=== PATIENT | female | born 1985 | race Caucasian/White ===

== ENCOUNTER 2016-06-07 04:52 | Inpatient (IN) | payer BC, OTHER ==
[~2016-06-07 04:52] MED LIST: CALC60TA2 PO; FERR240T9 PO; PRENAT PO
[2016-06-07] MEDS ORDERED: OXYTOCIN 10 UNIT INJ ONE (05:01)
--- NOTE | 2016-06-07 05:34 | HP ---
Date/Time of Note Date/Time of Note DATE: 06/07/16 TIME: 05:31 OB - History Hx of Present Free Text/Dictation Pt is a 30yo BIBA 2/2 painful UCs with onset 1hr ago. Pt reports hx of fast labors. Reports normal FM, denies LOF or VB. Per pt, receiving antental care at [facility] although late to care at 5mth of 2/2 late realization of . Denies complications during course. Denies hx of drug or EtOH use. Estimated Due Date: Jun 16, 2016 (per pt report) : 4 Para: 3 Care: Limited Care Past Family/Social History * chart not available OB Admission Exam Vital Signs Vital Signs 134/77 79 Physical Exam HEENT: WNL Heart: Rhythm Normal Lungs: Clear Abdomen: WNL Extremities: Normal Cervical Dilatation: 10cm Effacement: 100% Station: +2 Membranes: Intact Heart Rate: 130's (limited FHT) Accelerations: Accelerations Present Decelerations: Late Decelarations Varibility: Moderate Contractions on Admission: < 5 Minutes Apart Intensity: Firm OB Assessment/Plan Reason for admission: active labor Plan: Expectant Management Other plan: RT for delivery 2/2 absence of records and limited FHT Will begin pushing VIC DUNAWAY MD Jun 07, 2016 05:34
--- NOTE | 2016-06-07 05:37 | LDN ---
Date/Time of Note Date/Time of Note DATE: 06/07/16 TIME: 05:34 Delivery Summary Uncomplicated . JOVI atony managed with uterotonics. Uterine sweep with Ancef 2g IV x1 given thereafter. RT at delivery 2/2 absence of records and limited FHT prior to delivery Placenta Delivered: Spontaneously Meconium: none Perineum intact?: Yes Anesthesia type: None Estimated blood loss: 400 (Oxytocin 10mg IM x1 followed by Misoprostol 1000mcg PA 2/2 JOVI atony) Sponge & Needle done & correct: Yes All needle counts correct: Yes Any foreign bodies felt in the: No Problems: Infant Delivery Information Sex Sex: male Apgars 1 Minute: 8 5 Minute: 8 Suctioning Nose & mouth suctioned at erica: Yes Delee suction performed: Yes Umbilical Cord Umbilical cord with: 3 Vessels Cord presentations: no nuchal cord Cord Blood was obtained: Yes Mother & Baby Disposition Disposition Mom & Baby to Maternity; Good: Yes Baby to NICU: No VIC DUNAWAY MD Jun 07, 2016 05:37
[2016-06-07] MEDS: LACTATED RINGER'S 1,000 ML IV* SCH ×2 (05:50→11:22)
[2016-06-07] MEDS ORDERED: ACETAMINOPHEN 325 MG TAB PO PRN (06:00)
[2016-06-07] MEDS ORDERED: METHYLERGONOVINE 0.2 MG INJ IM PRN ×2 (06:00→08:00)
[2016-06-07] MEDS ORDERED: CEFAZOLIN 2 GM/50 ML (PMX) 50 ML IVPB ONE (06:00)
[2016-06-07] MEDS ORDERED: LANOLIN 7 GM TUBE TOP PRN (06:00)
[2016-06-07] MEDS ORDERED: CARBOPROST 250 MCG INJ IM PRN ×2 (06:00→08:00)
[2016-06-07] MEDS ORDERED: SENNA/DOCUSATE NA (8.6MG/50MG) TAB PO PRN (06:00)
[2016-06-07] MEDS ORDERED: MISOPROSTOL 200 MCG TAB PR PRN ×2 (06:00→08:00)
[2016-06-07] MEDS ORDERED: ONDANSETRON 4 MG INJ IV PRN (06:00)
[2016-06-07] MEDS ORDERED: BENZOCAINE 20% 56 ML SPRAY TOP PRN (06:00)
[2016-06-07] MEDS ORDERED: DIPHENHYDRAMINE 50 MG INJ IV PRN (06:00)
[2016-06-07] MEDS ORDERED: DIBUCAINE 1% 30 GM OINT PR PRN (06:00)
[2016-06-07] MEDS ORDERED: OXYTOCIN 30 UNITS/LR 500 ML IV PRN ×2 (06:00→08:00)
[2016-06-07] MEDS: IBUPROFEN 600 MG TAB PO SCH ×4 (06:43→23:51)
[2016-06-07 06:54] LABS: ADD SCAN DIFF NO
[2016-06-07 07:09] LABS: BASOPHILS % 0.2 % (0.0-2.0); EOSINOPHILS # 0.1 10^3/ul (0.0-0.5); EOSINOPHILS % 0.4 % (0.0-7.0); HEMATOCRIT 35.2 % (37.0-47.0); HEMOGLOBIN 11.5 g/dl (12.0-16.0); LYMPHOCYTES # 1.7 10^3/ul (0.8-2.9); LYMPHOCYTES % 13.2 % (15.0-51.0); MEAN CORPUSCULAR HEMOGLOBIN 28.6 pg (29.0-33.0); MEAN CORPUSCULAR HGB CONC 32.7 g/dl (32.0-37.0); MEAN CORPUSCULAR VOLUME 87.6 fl (82.0-101.0); MEAN PLATELET VOLUME 10.4 fl (7.4-10.4); MONOCYTE # 0.4 10^3/ul (0.3-0.9); MONOCYTES % 3.3 % (0.0-11.0); NEUTROPHIL # 10.7 10^3/ul (1.6-7.5); NEUTROPHILS % 82.3 % (39.0-77.0); PLATELET COUNT 285 10^3/UL (140-415); RED BLOOD COUNT 4.02 10^6/ul (4.20-5.40); RED CELL DISTRIBUTION WIDTH 13.2 % (11.5-14.5)
[2016-06-07 07:30] LABS: INR 0.86; PROTIME 11.7 Sec (12.2-14.2); PT RATIO 0.9
[2016-06-07 07:31] LABS: PARTIAL THROMBOPLASTIN TIME 28.5 Sec (25.0-35.0)
[2016-06-07] MEDS ORDERED: ACETAMINOPHEN/CODEINE #3 TAB PO PRN (08:00)
[2016-06-07] MEDS ORDERED: OXYCODONE/ACETAMINOPHEN (5/325) TAB PO PRN (08:00)
[2016-06-07] MEDS ORDERED: IBUPROFEN 600 MG TAB PO PRN (08:00)
[2016-06-07] MEDS ORDERED: OXYCODONE/ASPIRIN (4.88/325) TAB PO PRN (08:00)
[2016-06-07] MEDS ORDERED: OXYTOCIN 30 UNITS/LR 500 ML IV SCH ×2 (08:00)
[2016-06-07 08:16] LABS: BARBITURATES Negative (NEGATIVE); BENZODIAZEPINES Negative (NEGATIVE); CANNABINOIDS Positive (NEGATIVE); COCAINE Negative (NEGATIVE); OPIATES Negative (NEGATIVE)
[2016-06-07 08:35] VITALS: BP 130/80; PULSE 86; RESP 20
[2016-06-07 12:00] VITALS: BP 118/71; PULSE 74; RESP 18
[2016-06-07 16:00] VITALS: BP 130/88; PULSE 87; RESP 19
[2016-06-07 20:00] VITALS: BP 145/85; PULSE 115; RESP 18
[2016-06-08] VITALS: BP 132/78; PULSE 86; RESP 18
[2016-06-08 03:52] VITALS: BP 117/65; PULSE 73; RESP 18
[2016-06-08] MEDS: IBUPROFEN 600 MG TAB PO SCH ×4 (05:38→23:22)
[2016-06-08 07:50] VITALS: BP 118/69; PULSE 75; RESP 17
[2016-06-08 07:54] LABS: ADD SCAN DIFF NO
[2016-06-08 07:59] LABS: BASOPHILS % 0.3 % (0.0-2.0); EOSINOPHILS # 0.2 10^3/ul (0.0-0.5); EOSINOPHILS % 2.1 % (0.0-7.0); HEMATOCRIT 31.2 % (37.0-47.0); HEMOGLOBIN 10.2 g/dl (12.0-16.0); LYMPHOCYTES # 2.9 10^3/ul (0.8-2.9); LYMPHOCYTES % 32.9 % (15.0-51.0); MEAN CORPUSCULAR HEMOGLOBIN 28.8 pg (29.0-33.0); MEAN CORPUSCULAR HGB CONC 32.7 g/dl (32.0-37.0); MEAN CORPUSCULAR VOLUME 88.1 fl (82.0-101.0); MEAN PLATELET VOLUME 10.2 fl (7.4-10.4); MONOCYTE # 0.5 10^3/ul (0.3-0.9); MONOCYTES % 5.3 % (0.0-11.0); NEUTROPHIL # 5.2 10^3/ul (1.6-7.5); NEUTROPHILS % 58.9 % (39.0-77.0); PLATELET COUNT 280 10^3/UL (140-415); RED BLOOD COUNT 3.54 10^6/ul (4.20-5.40); RED CELL DISTRIBUTION WIDTH 13.1 % (11.5-14.5); WHITE BLOOD COUNT 8.8 10^3/ul (4.8-10.8)
[2016-06-08] MEDS ORDERED: INFLUENZA VIRUS VACCINE 0.5 ML (DISPENSING) IM* ONE (11:00)
[2016-06-08 15:40] VITALS: BP 117/70; PULSE 85; RESP 19
[2016-06-08 19:50] VITALS: BP 114/60; PULSE 87; RESP 19
[2016-06-09 04:00] VITALS: BP 115/61; PULSE 82; RESP 19
[2016-06-09] MEDS: IBUPROFEN 600 MG TAB PO SCH ×2 (06:18→11:59)
[2016-06-09 08:00] VITALS: BP 109/59; PULSE 84; RESP 18
[2016-06-09] MEDS ORDERED: DIPHTH/TET/ACEL PERTUSS (ADULT) 0.5 ML VIAL IM* ONE (09:00)
--- NOTE | 2016-06-09 09:19 | DS ---
Date/Time of Note Date/Time of Note 28 DATE: 06/09/16 TIME: 09:11 Post day 2 Patient is doing well, Ambulatory She is afebrile Abdomen is soft , Fundus is firm Moderate amount of lochia Breasts are soft, Nipples are intact No calf tenderness Not breast feeding the new born. Current Medications Medications (Trade) Dose Ordered Sig/Eder Route PRN Reason Start Time Stop Time Status Last Admin Dose Admin Oxytocin 10 units 10 units STK-MED ONCE .ROUTE 06/07/16 05:01 06/07/16 05:02 DC Cefazolin Sodium/ Dextrose 50 ml @ 100 mls/hr ONCE ONCE IVPB 06/07/16 06:00 06/07/16 06:00 DC Lactated Ringer's (Lr) 1,000 ml @ 125 mls/hr Q8H IV* 06/07/16 05:38 06/07/16 18:38 DC 06/07/16 11:22 Ibuprofen (Motrin) 600 mg Q6 PO 06/07/16 06:00 06/09/16 06:18 Ondansetron HCl (Zofran Inj) 4 mg Q6H PRN IV NAUSEA AND/OR VOMITING 06/07/16 06:00 Diphenhydramine HCl (Benadryl) 25 mg Q6H PRN IV PRURITUS 06/07/16 06:00 Senna/Docusate Sodium (Senokot-S) 1 tab BID PRN PO CONSTIPATION 06/07/16 06:00 06/08/16 20:25 Benzocaine (Dermoplast [place]) 1 spray BEDSIDE MEDICATION PRN TOP HEMORRHOID/EPISIOTMY PAIN 06/07/16 06:00 06/07/16 09:22 Dibucaine (Nupercainal) 1 applic BEDSIDE MEDICATION PRN SD HEMORRHOID/EPISIOTMY PAIN 06/07/16 06:00 Lanolin (Cyt-R-Pcxije) 1 applic BEDSIDE MEDICATION PRN TOP BEDSIDE FOR STEFANY TO NIPPLES 06/07/16 06:00 Diphtheria/ Tetanus/Acell Pertussis (Adacel) 0.5 ml ONCE ONCE IM* 06/09/16 09:00 06/09/16 09:01 DC Acetaminophen 650 mg 650 mg Q4H PRN PO ELEVATED TEMPERATURE 06/07/16 06:00 Oxytocin/Lactated Ringer's 500 ml @ 0 mls/hr ONCE PRN IV For Hemorrhage Management 06/07/16 06:00 06/07/16 06:45 Methylergonovine Maleate (Methergine) 0.2 mg ONCE PRN IM VAGINAL BLEEDING 06/07/16 06:00 Carboprost Tromethamine (Hemabate) 250 mcg ONCE PRN IM VAGINAL BLEEDING 06/07/16 06:00 Cancel Misoprostol 1000 mcg 1,000 mcg ONCE PRN SD VAGINAL BLEEDING 06/07/16 06:00 06/07/16 06:47 Oxytocin/Lactated Ringer's 500 ml @ 125 mls/hr ONCE -MAY REPEAT X1 IV 06/07/16 08:00 06/07/16 18:39 DC 06/07/16 07:52 Oxytocin/Lactated Ringer's 500 ml @ 125 mls/hr ONCE IV 06/07/16 08:00 Ibuprofen (Motrin) 600 mg ONCE PRN PO Mild Pain (Pain Score 1-3) 06/07/16 08:00 Acetaminophen/ Codeine Phosphate (Tylenol No.3) 2 tab ONCE PRN PO Moderate to Severe Pain (4-10) 06/07/16 08:00 Oxycodone/Aspirin (Percodan) 2 tab ONCE PRN PO Moderate to Severe Pain (4-10) 06/07/16 08:00 Oxycodone/ Acetaminophen 2 tab 2 tab ONCE PRN PO Moderate to Severe Pain (4-10) 06/07/16 08:00 06/07/16 09:22 Oxytocin/Lactated Ringer's 500 ml @ 0 mls/hr ONCE PRN IV For Hemorrhage Management 06/07/16 08:00 Methylergonovine Maleate (Methergine) 0.2 mg ONCE PRN IM VAGINAL BLEEDING 06/07/16 08:00 Carboprost Tromethamine (Hemabate) 250 mcg ONCE PRN IM VAGINAL BLEEDING 06/07/16 08:00 Misoprostol (Cytotec) 1,000 mcg ONCE PRN SD VAGINAL BLEEDING 06/07/16 08:00 Influenza Virus Vaccine (Fluzone) 0.5 ml ONCE ONCE IM* 06/08/16 11:00 06/08/16 11:01 DC 06/08/16 15:27 Obstetrical Discharge Record Final Diagnosis Final Diagnosis: Term delivered Vaginal Delivery Obstetrical Delivery: Spontaneous Complications Augmentation: No Induction: No Rupture of Membranes: No Condition on Discharge Physical Assessment Voiding: Yes Bowel Movement: Yes Breast: Soft, non-tender Fundus: Firm Calf Tenderness: No Patient Condition: Good JAMEY ROYAL MD Jun 09, 2016 09:18
[2016-06-09 16:14] VITALS: BP 118/60; PULSE 80; RESP 18
[2016-06-10 14:44] LABS: RUBELLA ANTIBODY - IGG 0.95 index
== END 2016-06-09 18:15 | disposition home or self-care (01) | DRG 775 ==
LOC: L-D 04:52 → PP1 08:38
PROVIDERS: ADMIT Obstetrics & Gynecology; ATTEND Obstetrics & Gynecology
PROC: 10E0XZZ Delivery of Products of Conception, External Approach (ICD-10-PCS; principal; 2016-06-07)
PROC: 3E00X4Z Introduction of Serum, Toxoid and Vaccine into Skin and Mucous Membranes, External Approach (ICD-10-PCS; 2016-06-09)
DX: O80 Encounter for full-term uncomplicated delivery (principal); Z23 Encounter for immunization; Z3A.38 38 weeks gestation of pregnancy; Z37.0 Single live birth
CPT/HCPCS: 80307; 85025; 85610; 85730; 86592; 86703; 86762; 86850; 86900; 86901; 87340; 90686; 90715; 99464; J2590; J7120

== ENCOUNTER 2018-01-25 21:38 | Emergency (ER) | END 2018-01-25 22:37 ==